=== PATIENT | female | born 1980 | race African-American/Black ===

== ENCOUNTER 2019-11-14 09:47 | Outpatient (CLI) | payer OTHER, SELFPAY | END 2019-11-14 09:48 | disposition home or self-care (01) | DX: H91.93 Unspecified hearing loss, bilateral (principal); H61.21 Impacted cerumen, right ear | CPT/HCPCS: 99199 ==

== ENCOUNTER 2019-11-21 13:47 | Outpatient (CLI) | payer OTHER, SELFPAY | END 2019-11-21 13:48 | disposition home or self-care (01) | LOC: ANHBWCAUD 13:49 | PROVIDERS: PCP Family Medicine; Visit Provider Family Medicine | DX: H90.3 Sensorineural hearing loss, bilateral (principal) | CPT/HCPCS: 92557; 92567 ==

== ENCOUNTER 2022-11-17 13:36 | Outpatient (CLI) | payer OTHER, SELFPAY | END 2022-11-17 13:37 | disposition home or self-care (01) | PROVIDERS: PCP Family Medicine; Visit Provider Family Medicine | DX: H90.3 Sensorineural hearing loss, bilateral (principal) | CPT/HCPCS: 92557; 92567 ==